=== PATIENT | female | born 2000 | race Caucasian/White ===

== ENCOUNTER → 2020-02-27 14:18 | Outpatient (CLI) | payer OTHER, MEDICAID, SELFPAY ==
--- NOTE | 2020-02-27 14:19 | DI.US.S_ITS ---
PROCEDURE: US OB >= 14 WEEKS FETUS INDICATIONS: 20 WEEK ANATOMY SCAN OUTSIDE/PRIOR DATING DATA: Last menstrual period (LMP): 10/12/19. LMP-based estimated date of delivery (NABEEL): 08/14/20. First dating scan (date and location): 02/27/20, [facility]. Estimated date of delivery (NABEEL) from first dating scan: 08/14/20. TECHNIQUE: Real-time scanning was performed of the fetus, with image documentation and biometric measurements. COMPARISON: None. FINDINGS: General: A single live intrauterine gestation is present. Presentation: Variable. Placenta: Placental position is posterior and low lying, with the inferior edge of the placenta seen on centimeter from the internal cervical os, as on image 3. Amniotic fluid index: 13.4 cm, normal range is 5-24 cm. heart rate: 155 beats per minute. Maternal cervical canal: 5.6 cm long. Normal lower limit is 2.5 cm. biometrics: Biparietal diameter: 4.3 cm equals 18 weeks 6 days Head circumference: 16.7 cm equals 19 weeks 2 days Abdominal circumference: 13.3 cm equals 20 weeks 4 days Femur length: 3.3 cm equals 20 weeks 1 day Estimated gestational age from initial scan: 19 weeks 5 days Composite gestational age from present scan: 20 weeks 5 days Estimated weight and percentile: 339 g, 74th percentile Measurement variability for biometric dating: +/- 7 days from 14 weeks to 15 weeks 6 days gestation, +/- 10 days from 16 weeks to 21 weeks 6 days gestation, +/- 2 weeks from 22 weeks to 27 weeks 6 days gestation, +/- 3 weeks for 28 weeks gestation or later. weight reference: 4500 g or EFW >90/95% is considered macrosomia or large for gestational age. EFW <10% is small for gestational age. EFW 5% or less is considered intra-uterine growth restriction. Anatomic survey: Neuro: Ventricles are non-dilated at less than 10 mm. Cisterna magna is normal at 3-11 mm. Cerebellum is normal in size and morphology. Nuchal skin fold: Normal at less than 6 mm between 14-21 weeks gestational age. Face: Nose and lips, facial profile are normal. Spine: No evidence for spina bifida. Heart: 4-chambered heart is present, with normal ventricular outflow tracts. Diaphragm: Diaphragm is intact. Stomach: Left-sided stomach is present. Kidneys: No hydronephrosis. Normal is less than 5 mm in 2nd trimester, less than 7 mm in 3rd trimester. Cord: 3-vessel cord has orthotopic insertion. Bladder: Normal in size. Extremities: All 4 extremities identified. IMPRESSION: A single live intrauterine is seen. No anatomic abnormalities are identified. A [id number] placenta is seen, with the inferior edge of placenta seen approximately 1 cm from the internal cervical. Dictated by: Epifanio Saba M.D. on 02/27/2020 at 16:13 Approved by: Epifanio Saba M.D. on 02/27/2020 at 16:16
== END ==
PROVIDERS: Referring Provider Obstetrics & Gynecology; Visit Provider Obstetrics & Gynecology
DX: Z34.82 Encounter for supervision of other normal pregnancy, second trimester (principal); Z3A.20 20 weeks gestation of pregnancy
CPT/HCPCS: 76811

== ENCOUNTER → 2020-03-04 11:56 | Outpatient (CLI) | payer OTHER, MEDICAID, SELFPAY ==
[2020-03-04 12:25] LABS: Add Manual Diff / Slide Review NO; Basophils Absolute Auto 0 /uL (0-100); Basophils Percent Auto 0.3 % (0-2); Eosinophils Absolute Auto 200 /uL (0-450); Eosinophils Percent Auto 1.4 % (2-4); Hematocrit 35.9 % (36-46); Hemoglobin 12.5 g/dL (12.0-16.0); Lymphocytes Absolute Auto 2100 /uL (1100-4500); Lymphocytes Percent Auto 14.5 % (25-40); Mean Corpuscular HGB Conc 34.9 % (30-36); Mean Corpuscular Hemoglobin 31.4 PG (26-34); Monocytes Absolute Auto 800 /uL (0-900); Monocytes Percent Auto 5.8 % (3-14); Neutrophils Absolute Auto 11100 /uL (1500-7000); Platelet Count 236 X10^3/uL (150-400); Red Blood Cell Count 3.99 X10^6/uL (4.0-5.2); Red Cell Distribution Width 12.6 % (11.6-14.8); White Blood Cell Count 14.3 X10^3/uL (4.5-11.0)
[2020-03-04 17:12] LABS: Appearance Urine UA CLOUDY; Bilirubin Urine UA NEGATIVE (NEGATIVE); Color Urine UA YELLOW; Glucose Urine UA NEGATIVE (Negative); Ketones Urine UA NEGATIVE (NEGATIVE); Leukocyte Esterase Urine UA NEGATIVE (NEGATIVE); Nitrite Urine UA NEGATIVE (Negative); Occult Blood Urine UA NEGATIVE (Negative); Protein Urine UA NEGATIVE (Negative); Urobilinogen Urine UA 0.2 E.U./dL (0.2)
[2020-03-04 17:19] LABS: UR Morphine/Opiate cutoff 300 Negative (Negative); Ur Creatinine Normal (Normal); Ur Specific Gravity Normal (Normal); Urine Amphetamines Negative (Negative); Urine Barbiturates Negative (Negative); Urine Benzodiazepines Negative (Negative); Urine Cocaine Negative (Negative); Urine MDMA Negative (Negative); Urine Methadone Negative (Negative); Urine Methamphetamines Negative (Negative); Urine Oxycodone Negative (Negative); Urine Phencyclidine Negative (Negative); Urine Tetrahydrocannabinol Negative (Negative); Urine Tricyclic Antidepressant Negative (Negative); Urine pH Normal (Normal)
[2020-03-04 17:26] LABS: pH Urine UA 7.5 (4.5-8.0)
[2020-03-04 18:47] LABS: Hepatitis B Surface Antigen NEGATIVE s/c (NEGATIVE); Rubella Antibody IgG 50.3 IU/mL (>15)
[2020-03-04 19:13] LABS: HIV 1 & 2 Ab/Ag 4th Gen Combo NEGATIVE (NEGATIVE); Hep C Virus Ab w/Reflex Quant NEGATIVE s/c (NEGATIVE)
[2020-03-05 05:36] LABS: RPR Screen Non Reactive (Non Reactive); Varicella IgG Antibody <135 index (Immune >165)
== END ==
PROVIDERS: Referring Provider Obstetrics & Gynecology; Visit Provider Obstetrics & Gynecology
DX: Z34.82 Encounter for supervision of other normal pregnancy, second trimester (principal)
CPT/HCPCS: 36415; 80055; 80305; 81003; 86787; 86803; 86850; 86900; 86901; 87086; 87389

== ENCOUNTER → 2020-04-26 14:15 | Outpatient (CLI) | payer OTHER, MEDICAID, SELFPAY ==
[2020-04-26 16:12] LABS: Hematocrit 33.3 % (36-46); Hemoglobin 11.5 g/dL (12.0-16.0)
[2020-04-26 16:38] LABS: GTT (PREG) 1 Hour PP 50gm Dose 121 mg/dL (76-139)
== END ==
PROVIDERS: Referring Provider Obstetrics & Gynecology; Visit Provider Obstetrics & Gynecology
DX: Z34.82 Encounter for supervision of other normal pregnancy, second trimester (principal); Z3A.25 25 weeks gestation of pregnancy
CPT/HCPCS: 36415; 82950; 85014; 85018

== ENCOUNTER → 2020-05-08 14:11 | Outpatient (CLI) | payer OTHER, MEDICAID, SELFPAY ==
--- NOTE | 2020-05-08 14:13 | DI.US.S_ITS ---
PROCEDURE: US OB FOLLOW UP INDICATIONS: FOLLOW-UP LOW-LYING PLACENTA OUTSIDE/PRIOR DATING DATA: Last menstrual period (LMP): 10/12/19. LMP-based estimated date of delivery (NABEEL): 08/14/20. First dating scan (date and location): 02/27/20, [facility]. Estimated date of delivery (NABEEL) from first dating scan: 08/14/20.. TECHNIQUE: Real-time scanning was performed of the fetus, with image documentation and biometric measurements. Endovaginal scanning: No COMPARISON: [facility], , OB >= 14 WEEKS FETUS, 02/27/2020, 14:27. FINDINGS: General: A single living intrauterine gestation is present. Presentation: Vertex Placenta: Placental position is posterior, without previa. Amniotic fluid index: 13.8 cm, normal range is 5-24 cm. heart rate: 135 beats per minute. Maternal cervical canal: 3.3 cm long. Normal lower limit is 2.5 cm. biometrics: Biparietal diameter: 18 weeks 6 days Head circumference: 19 weeks 2 days Abdominal circumference: 20 weeks 4 days Femur length: 20 weeks 1 day Estimated gestational age from initial scan: 19 weeks 5 days Composite gestational age from present scan: 19 weeks 5 days Estimated weight and percentile: 339 g; 74th percentile. Measurement variability for biometric dating: +/- 7 days from 14 weeks to 15 weeks 6 days gestation, +/- 10 days from 16 weeks to 21 weeks 6 days gestation, +/- 2 weeks from 22 weeks to 27 weeks 6 days gestation, +/- 3 weeks for 28 weeks gestation or later. weight reference: 4500 g or EFW >90/95% is considered macrosomia or large for gestational age. EFW <10% is small for gestational age. EFW 5% or less is considered intra-uterine growth restriction. Other: Not applicable. IMPRESSION: 1. Single living IUP redemonstrated and interval growth is normal. 2. Resolved low-lying placenta. Dictated by: Gianluca Gabriel [facility] Interpreted: Brenton Hayes MD on 05/08/2020 at 17:08 Approved by: Brenton Hayes M.D. on 05/08/2020 at 17:14
== END ==
PROVIDERS: Referring Provider Obstetrics & Gynecology; Visit Provider Obstetrics & Gynecology
DX: O44.43 Low lying placenta NOS or without hemorrhage, third trimester (principal); Z3A.19 19 weeks gestation of pregnancy
CPT/HCPCS: 76816

== ENCOUNTER → 2020-06-14 08:56 | Outpatient (CLI) | payer OTHER, MEDICAID, SELFPAY ==
[2020-06-15 08:24] LABS: Strep Grp B PCR NEG for Grp B Strep
== END ==
PROVIDERS: Visit Provider Obstetrics & Gynecology
DX: Z34.03 Encounter for supervision of normal first pregnancy, third trimester (principal); Z3A.35 35 weeks gestation of pregnancy
CPT/HCPCS: 87653

== ENCOUNTER 2020-06-21 11:14 | Outpatient (CLI) | payer OTHER, MEDICAID, SELFPAY ==
--- NOTE | 2020-06-21 11:46 | P.TNLD_ITS ---
Visit Information Visit Information Date of evaluation: 06/21/20 Primary OB Provider: Tootie Gallegos Reason for Evaluation: Yes non-stress test Comments/Additional reasons for admission: 20yo @36+4 with uncomplicated , presenting for NST for elevated FHR on bedside doppler in clinic. No other complaints obstetrical or otherwise. Vital Signs Vital Signs: 108-112/52-55 [facility] Medical History Alcohol addiction (Acute) Bronchitis (Acute) Depression with anxiety (Acute) Disordered eating (Acute) Drug addiction (Acute) Eczema (Acute) PTSD (post-traumatic stress disorder) (Acute) Seasonal allergic rhinitis (Acute) Surgical History No history of previous surgery (Acute) Family History Mother Drug addiction Acute alcohol intoxication with alcoholism Depression Bipolar 1 disorder PTSD (post-traumatic stress disorder) Anxiety Father Family estrangement Grandmother Depression Family/Other Breast cancer Grandfather Myocardial infarct Sister No problems noted. 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 H/O Treatment in 2017 ) Review of Systems Constitutional Constitutional: Reports system reviewed and no additional complaints, except as documented Evaluation Evaluation Baseline heart rate: 145 Variability: Moderate (11-25) monitor accelerations: Present monitor decelerations: Absent Diagnosis, Plan/Disposition Plan/Disposition Plan: Home with routine precautions and scheduled follow up. OB Disposition: home
== END 2020-06-21 12:00 | disposition home or self-care (01) ==
LOC: LABOR 11:45 → OB 06-25 12:41
PROVIDERS: PCP Nurse Practitioner Family; Referring Provider Obstetrics & Gynecology; Visit Provider Obstetrics & Gynecology
DX: O26.893 Other specified pregnancy related conditions, third trimester (principal); R03.0 Elevated blood-pressure reading, without diagnosis of hypertension; O99.333 Smoking (tobacco) complicating pregnancy, third trimester; Z3A.36 36 weeks gestation of pregnancy
CPT/HCPCS: 59025; G0378; G0379

== ENCOUNTER 2020-07-05 09:38 | Outpatient (CLI) | payer OTHER, MEDICAID, SELFPAY ==
--- NOTE | 2020-07-05 10:54 | PM.OBTRLD ---
Visit Information Visit Information Date of evaluation: 07/05/20 Primary OB Provider: Tootie Gallegos Reason for Evaluation: Yes non-stress test Comments/Additional reasons for admission: This patient is a 20-year-old 010 at 38 and 4 with severe anxiety around clinic visits and elevated blood pressures in clinic, sent to Labor and delivery for NST, preeclampsia labs, and serial blood pressures. No complaints today except for her anxiety. Vital Signs Vital Signs: 119-126/69-75 PFS Medical History Alcohol addiction (Acute) Bronchitis (Acute) Depression with anxiety (Acute) Disordered eating (Acute) Drug addiction (Acute) Eczema (Acute) PTSD (post-traumatic stress disorder) (Acute) Seasonal allergic rhinitis (Acute) Surgical History No history of previous surgery (Acute) Family History Mother Drug addiction Acute alcohol intoxication with alcoholism Depression Bipolar 1 disorder PTSD (post-traumatic stress disorder) Anxiety Father Family estrangement Grandmother Depression Family/Other Breast cancer Grandfather Myocardial infarct Sister No problems noted. 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 H/O Treatment in 2017 ) Review of Systems Constitutional Constitutional: Reports system reviewed and no additional complaints, except as documented Objective Labs Result Diagrams: 07/05/20 10:50 07/05/20 10:50 Labs: UPC 0.12 Evaluation Evaluation Baseline heart rate: 155 Variability: Moderate (11-25) monitor accelerations: Present monitor decelerations: Absent Diagnosis, Plan/Disposition Plan/Disposition Plan: Home with precautions. OB Disposition: home
[2020-07-05 11:05] LABS: Add Manual Diff / Slide Review NO; Basophils Absolute Auto 100 /uL (0-100); Basophils Percent Auto 0.8 % (0-2); Eosinophils Absolute Auto 200 /uL (0-450); Eosinophils Percent Auto 1.1 % (2-4); Hematocrit 33.8 % (36-46); Hemoglobin 11.4 g/dL (12.0-16.0); Lymphocytes Absolute Auto 2400 /uL (1100-4500); Lymphocytes Percent Auto 13.3 % (25-40); Mean Corpuscular HGB Conc 33.7 % (30-36); Mean Corpuscular Hemoglobin 29.5 PG (26-34); Mean Corpuscular Volume 87.5 fL (80-100); Monocytes Absolute Auto 1200 /uL (0-900); Monocytes Percent Auto 6.6 % (3-14); Neutrophils Absolute Auto 14200 /uL (1500-7000); Neutrophils Percent Auto 78.2 % (50-75); Platelet Count 265 X10^3/uL (150-400); Red Blood Cell Count 3.87 X10^6/uL (4.0-5.2); Red Cell Distribution Width 13.4 % (11.6-14.8); White Blood Cell Count 18.2 X10^3/uL (4.5-11.0)
[2020-07-05 11:23] LABS: Aspartate Aminotransferase 24 IU/L (14-36); BUN Creatinine Ratio 18.6 (6-22); Blood Urea Nitrogen 8 mg/dL (7-17); Estimated Glomerular Filt Rate > 60.0 mL/min (>60); Uric Acid 4.4 mg/dL (2.5-6.2)
[2020-07-05 12:00] LABS: Protein (Total) Urine Random 14 mg/dL (0-12); Protein Creatinine Ratio Urine 0.12 GRAM/24H
== END 2020-07-05 11:25 | disposition home or self-care (01) ==
LOC: LABOR 10:38 → OB 07-08 16:36
PROVIDERS: PCP Nurse Practitioner Family; Referring Provider Obstetrics & Gynecology; Visit Provider Obstetrics & Gynecology
DX: O26.893 Other specified pregnancy related conditions, third trimester (principal); F41.9 Anxiety disorder, unspecified; Z3A.38 38 weeks gestation of pregnancy
CPT/HCPCS: 59025; 82570; 84156; 84450; 84550; 85025; G0378; G0379

== ENCOUNTER → 2020-07-15 08:39 | Outpatient (CLI) | payer OTHER, MEDICAID, SELFPAY ==
[2020-07-17 06:12] LABS: COVID19 Sendout Not Detected (Not Detect)
== END ==
PROVIDERS: PCP Nurse Practitioner Family; Visit Provider Physician Assistant
DX: Z11.59 Encounter for screening for other viral diseases (principal)
CPT/HCPCS: 87635

== ENCOUNTER 2020-07-17 19:00 | Inpatient (IN) | payer OTHER, MEDICAID, SELFPAY ==
[2020-07-17] MEDS: DINOPROSTONE VAG (CERVIDIL) 10 MG VAG (20:35)
[2020-07-17 22:37] LABS: Add Manual Diff / Slide Review NO; Basophils Absolute Auto 100 /uL (0-100); Basophils Percent Auto 0.4 % (0-2); Eosinophils Absolute Auto 100 /uL (0-450); Eosinophils Percent Auto 0.8 % (2-4); Hematocrit 34.5 % (36-46); Hemoglobin 11.3 g/dL (12.0-16.0); Lymphocytes Absolute Auto 3000 /uL (1100-4500); Lymphocytes Percent Auto 18.3 % (25-40); Mean Corpuscular HGB Conc 32.8 % (30-36); Mean Corpuscular Hemoglobin 28.6 PG (26-34); Mean Corpuscular Volume 87.2 fL (80-100); Monocytes Absolute Auto 1100 /uL (0-900); Monocytes Percent Auto 6.7 % (3-14); Neutrophils Absolute Auto 12000 /uL (1500-7000); Neutrophils Percent Auto 73.8 % (50-75); Platelet Count 272 X10^3/uL (150-400); Red Blood Cell Count 3.95 X10^6/uL (4.0-5.2); Red Cell Distribution Width 13.5 % (11.6-14.8); White Blood Cell Count 16.2 X10^3/uL (4.5-11.0)
[2020-07-17 23:51] VITALS: BP 117/64
--- NOTE | 2020-07-18 07:40 | P.HPOB_ITS ---
OB HPI Date/Time Date of admission: 07/17/20 Date Patient Seen: 07/18/20 Time Patient Seen: 08:40 History of Present Condition Chief complaint: eval of labor : 2 Para: 0 Estimated Date of Delivery: 07/15/20 Estimated Gestational Age (weeks): 40 Narrative: Marietta Santos is a 20 year old @40+3 admitted for induction of labor for postdates, in the setting of significant anxiety around her delivery. The patient reports feeling well with irregular contractions this AM, but denies VB, LOF, decreased movement, or any PIH complaints. The patient's has been uncomplicated except for anxiety about her care, and a history of alcohol abuse stopped at 5 weeks gestation and with negative u tox screenings. The patient has been living with her grandmother during COVID19. Indications Indication for induction OB: post dates History of Present care: good care, initiated at week # (13), number of visits (14) and pounds weight gain (34) Dating criteria: based on 1st trimester US only Ultrasounds: normal 1st trimester US and normal mid trimester US Obstetrical complications: none Medical complications: none Preadmission Labs Blood type: A (+) positive -: Antibody screen: negative, GBS status: negative, HBsAG: negative, HIV: negative and RPR/VDLR: negative -: Chlamydia screen: not detected and Gonorrhea screen: not detected -: Rubella: immune and Varicella: not immune Cell-free DNA: declined aneuploidy screening Urine: negative, u tox negative 1 hr GTT: 121 Prior (ies) History: 2018: 6 week SAB, expectantly managed Evaluation Evaluation Baseline heart rate: 125 Variability: Moderate (11-25) monitor accelerations: Present monitor decelerations: Absent Category of Tracing: Reactive Cervical dilation (cm): 1 Cervical effacement (%): 75 station: -1 Laboratory results: Laboratory Tests 07/17/20 07/17/20 19:45 19:45 WBC 16.2 H RBC 3.95 L Hgb 11.3 L Hct 34.5 L MCV 87.2 MCH 28.6 MCHC 32.8 RDW 13.5 Plt Count 272 Neut % (Auto) 73.8 Lymph % (Auto) 18.3 L [place] % (Auto) 6.7 Eos % (Auto) 0.8 L Baso % (Auto) 0.4 Neut # (Auto) 91710 H Lymph # (Auto) 3000 [place] # (Auto) 1100 H Eos # (Auto) 100 Baso # (Auto) 100 Blood Type A Positive Antibody Screen Negative Comments: soft, anterior- portillo score 8 PFSH Medical History Alcohol addiction (Acute) Bronchitis (Acute) Depression with anxiety (Acute) Disordered eating (Acute) Drug addiction (Acute) Eczema (Acute) PTSD (post-traumatic stress disorder) (Acute) Seasonal allergic rhinitis (Acute) Surgical History No history of previous surgery (Acute) Family History Mother Drug addiction Acute alcohol intoxication with alcoholism Depression Bipolar 1 disorder PTSD (post-traumatic stress disorder) Anxiety Father Family estrangement Grandmother Depression Family/Other Breast cancer Grandfather Myocardial infarct Sister No problems noted. 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 H/O Treatment in 2017 ) Meds Home Medications and Allergies Home Medications Medication Instructions Recorded Confirmed Type Double Electric breast Pump and #1 each 05/29/20 07/17/20 Rx Supplies Allergies Allergy/AdvReac Type Severity Reaction Status Date / Time No Known Drug Allergies Allergy Verified 07/15/20 08:46 Review of Systems Constitutional Constitutional: Reports system reviewed and no additional complaints, except as documented Cardiovascular Cardiovascular: Reports system reviewed and no additional complaints, except as documented Respiratory Respiratory: Reports system reviewed and no additional complaints, except as documented Gastrointestinal Gastrointestinal: Reports system reviewed and no additional complaints, except as documented Genitourinary Genitourinary: Reports system reviewed and no additional complaints, except as documented Musculoskeletal Musculoskeletal: Reports system reviewed and no additional complaints, except as documented Exam Vital Signs (past 8 hours): 108/50, HR 88, T 36.3C- 07/17/20 23:51 Blood Pressure 117/64 GI Palpation: soft and No tender External Female Exam: normal external appearance Presentation: vertex Estimated Weight (lbs): 8 Skin General: no rashes or lesions noted Extrem General: normal to inspection Objective Labs Result Diagrams: 07/17/20 19:45 Labs: Laboratory Results - last 24 hr 07/17/20 07/17/20 19:45 19:45 WBC 16.2 H RBC 3.95 L Hgb 11.3 L Hct 34.5 L MCV 87.2 MCH 28.6 MCHC 32.8 RDW 13.5 Plt Count 272 Neut % (Auto) 73.8 Lymph % (Auto) 18.3 L [place] % (Auto) 6.7 Eos % (Auto) 0.8 L Baso % (Auto) 0.4 Neut # (Auto) 17243 H Lymph # (Auto) 3000 [place] # (Auto) 1100 H Eos # (Auto) 100 Baso # (Auto) 100 Blood Type A Positive Antibody Screen Negative Assessment and Plan Assessment and Plan Assessment and Plan narrative: This patient is admitted for postdates induction, s/p cervidil overnight and now with a favorable cervix. We discussed the plan for pitocin augmentation this AM after a light meal, and I encouraged the patient to ambulate, sit on the birthing ball, etc. - cEFM, toco - pitocin per protocol - Anticipate
[2020-07-18] MEDS: OXYTOCIN PREMIX 30 UNIT/500 ML PLAST..BAG IV (09:21)
[2020-07-18] MEDS: LACTATED RINGERS 1,000 ML 100 ML IV ×2 (09:21→13:43)
--- NOTE | 2020-07-18 15:24 | PM.OBPNLAB ---
Date/Time Date Patient Seen: 07/18/20 Time Patient Seen: 15:10 Pain Control Pain control: epidural Pelvic Exam Dilation (cm): 3 Effacement (%): 90 station: -1 Amniotic membrane status: Ruptured (Thick meconium) Comments: Exam deferred per patient request until after epidural. Patient having good relief with epidural. Contractions Contractions on admission: regular Monitor mode: External Pitocin rate (mU/min): 12 Contraction frequency (min): 3 Contraction pattern: Regular Status status: Category l Heart Rate Baseline: 125 Monitor Accelerations: Present Monitor Decelerations: Variable (rare) Monitor Variability: Moderate Assessment and Plan Assessment: induction ongoing Plan: continuous present management Comments: Continue pitocin per protocol.
[2020-07-18] MEDS: FENT 2MCG/ML BUPIV 0.125% EPI 200 MCG/100 ML PLAST..BAG 10 MCG EPIDURAL (22:25)
[2020-07-19] MEDS: METHYLERGONOVINE 0.2 MG/ML VIAL IM (05:10)
--- NOTE | 2020-07-19 05:19 | P.PCNOB_ITS ---
Events: Meconium Stained Fluid Labor & Delivery Delivery date: 07/19/20 Intrapartal events: Acceleration and Deceleration Cervical ripening method: per Cervidil protocol Induction method: per pitocin protocol Delivery augmentation: rupture of membranes Delivery monitor: external FHT and external uterine Route of delivery: L&D Laceration Description: Perineal - 3rd Degree (3a) Delivery repair: vicryl and chromic Estimated blood loss (mL): 250 Anesthesia type: Epidural Narrative: This patient presented for induction of labor for postdates. She underwent cervical ripening with Cervidil and was started on Pitocin when her cervix became favorable. She underwent AROM at 3cm for thick meconium, and progressed to fully dilated on pitocin with intermittent variables but no other complications and reassuring maternal and status. After a 2 hour 2nd stage, she was delivered of a healthy baby girl from the OA position, body cord x1, apgars 9+9, weight 7#9. The shoulders delivered with ease. The placenta delivered spontaneously and intact shortly thereafter. A 3a perineal laceration was noted. The capsule of the external anal sphincter was reinforced with 3-0 chromic in an interrupted fashion, and the laceration was otherwise repaired with 3-0 vicryl in the usual fashion. The patient had lower uterine segment atony, and received 1x 0.2mg IM methergine to good effect, along with 30mU toney teresita in her IV fluids over the 2 hours after delivery. No other intrapartum or immediate complications were noted. [place] Baby Rocha: Infant gender: Female Presentation: vertex position: Left Occiput Transverse (LIZZETH) cord vessel description: Clamped/Cut score (1 min): 9 score (5 min): 9 Plan for aftercare: Routine care. 2g Ancef x1 IV for 3rd degree perineal laceration.
[2020-07-19] MEDS: CEFAZOLIN 2 GM/100 ML FROZ.PIGGY IV (06:34)
[2020-07-19] MEDS: OXYTOCIN PREMIX 30 UNIT/500 ML PLAST..BAG 100 UNIT IV (06:37)
[2020-07-19] MEDS: DERMOPLAST SPRAY 20% 60 ML 1 SPRAY TOP (07:55)
[2020-07-19] MEDS: DOCUSATE 100 MG CAPSULE PO ×2 (07:56→20:12)
[2020-07-19] MEDS: IBUPROFEN 600 MG TABLET PO ×3 (07:56→22:47)
--- NOTE | 2020-07-19 14:18 | PM.OBPN.1 ---
Subjective - OB Subjective Patient comments: no complaints, pain well controlled, tolerating diet and flatus present baby status: doing well [place] feeding status: exclusively breast feeding Date Patient Seen: 07/20/20 Time Patient Seen: 13:00 Interval history: This patient is PPD#0 s/p c/b 3a perineal laceration, recovering well except for urinary retention now mid-voiding trial after straight cath. Patient is for dave overnight if unable to void. Mild to moderate lochia, otherwise meeting goals. Exam Vital Signs (past 8 hours): VSS Resp Effort & Inspection: normal respiratory effort Auscultation: clear to auscultation bilaterally Cardio Rate: regular rate Rhythm: regular rhythm GI Palpation: soft and No tender External Female Exam: normal external appearance (swelling improving, repair intact) Objective Labs Result Diagrams: 07/17/20 19:45 Assessment & Plan Plan day: 0 plan OB: routine care Comments: Routine care, dave overnight with VT in AM if not successful this afternoon. Time Spent With Patient Time: Total time spent is greater than 50% in coordination of care (as documented) at patient's floor/unit and/or counseling patient: Time with patient: less than 15 minutes
[2020-07-19] MEDS: ACETAMINOPHEN 325 MG TABLET 650 MG PO (20:12)
[2020-07-20] MEDS: DOCUSATE 100 MG CAPSULE PO (08:32)
[2020-07-20] MEDS: ACETAMINOPHEN 325 MG TABLET 650 MG PO (08:32)
[2020-07-20] MEDS: IBUPROFEN 600 MG TABLET PO (08:32)
--- NOTE | 2020-07-20 10:13 | P.PNOB_ITS ---
Subjective - OB Subjective Patient comments: pain well controlled, tolerating diet, flatus present and other (mid- voiding trial this AM) baby status: doing well [place] feeding status: exclusively breast feeding Narrative: This patient is a 20yo now P1 PPD#1 s/p complicated by a prolonged pushing stage and 3a perineal laceration, with a course complicated by urinary retention. This AM, the patient reports good pain control with motrin and tylenol with minimal abdominal pain or cramping. She has mild to moderate lochia, is tolerating PO, is ambulating without difficulty, and is passing flatus. We discussed tips for voiding including running the water, relaxing and giving herself time, etc. We also discussed that given the patient's history, she is at high risk for anxiety and depression, though her symptoms are well controlled right now. We discussed referral to behavioral health vs. starting a low dose SSRI such as Sertraline, and the patient would prefer a referral to [facility] to start. Date Patient Seen: 07/20/20 Time Patient Seen: 10:18 Exam Vital Signs (past 8 hours): 117/63, HR 92 Const General: cooperative, healthy appearing and comfortable Resp Effort & Inspection: normal respiratory effort Auscultation: clear to auscultation bilaterally Cardio Rate: regular rate Rhythm: regular rhythm GI Palpation: soft and No tender Other: Fundus firm, at u Other: Exam deferred on patient request, patient denies drainage or bleeding, laceration repair visualized by nursing staff during dave removal and intact. Skin General: no rashes or lesions noted Objective Labs Result Diagrams: 07/17/20 19:45 Assessment & Plan Plan day: 1 plan OB: routine care Comments: This patient is mid voiding trial, and we discussed that if the voiding trial is successful, she will be discharged home but should come in to the ED if she is unable to void. We further discussed that if she is unable to void, she will be discharged home with a leg bag, with follow up Wednesday for a repeat voiding trial. The patient vocalized understanding. We also discussed routine precautions and referral to behavioral health. Time Spent With Patient Time: Total time spent is greater than 50% in coordination of care (as documented) at patient's floor/unit and/or counseling patient: Time with patient: 15-24 minutes
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
[2020-07-20 13:57] VITALS: BP 133/88; PULSE 83; RESP 18; TEMP 36.2
== END 2020-07-20 16:06 | disposition home or self-care (01) | DRG 542 ==
PROVIDERS: Admitting Provider Obstetrics & Gynecology; PCP Nurse Practitioner Family; Referring Provider Obstetrics & Gynecology; Visit Provider Obstetrics & Gynecology
DX: O48.0 Post-term pregnancy (principal); Z3A.40 40 weeks gestation of pregnancy; Z37.0 Single live birth; O62.2 Other uterine inertia; O70.21 Third degree perineal laceration during delivery, IIIa; O77.0 Labor and delivery complicated by meconium in amniotic fluid; Z11.59 Encounter for screening for other viral diseases
CPT/HCPCS: 01967; 59050; 59200; 59409; 85025; 86850; 86900; 86901; 87635; G0379; J0690; J2210; J2590

== ENCOUNTER 2020-07-21 07:40 | Emergency (ER) | payer OTHER, MEDICAID, SELFPAY ==
[2020-07-21 07:48] VITALS: BP 132/79; PULSE 109; RESP 18; TEMP 36.2; O2SAT 97; BMI 32.8
--- NOTE | 2020-07-21 07:49 | ED.FEMALEGU ---
HPI - Female Genitourinary General Chief complaint: Urogenital-Female Stated complaint: unable to urinate/ just had baby per phys Time Seen by Provider: 07/21/20 07:47 Source: patient Mode of arrival: Ambulatory Limitations: no limitations History of Present Illness HPI Narrative: Patient is a 20-year-old female who presents with urinary retention. She was released from hospital yesterday after vaginal delivery. She had some urinary retention at that time however she urinated prior to discharge. She says that he is having increased abdominal pain she is only urinating a little bit. Bladder scan shows greater than 999mL. She has an appointment with OB in 2 days Related Data Previous Rx's Medication Instructions Recorded Double Electric breast Pump and #1 each 05/29/20 Supplies acetaminophen [Tylenol] 650 mg PO Q6H PRN #20 tab 07/20/20 docusate sodium 100 mg PO BID #60 tab 07/20/20 ibuprofen 600 mg PO Q8H PRN #20 tab 07/20/20 Allergies Allergy/AdvReac Type Severity Reaction Status Date / Time No Known Drug Allergies Allergy Verified 07/15/20 08:46 Review of Systems Review of Systems Narrative: GENERAL: Denies chills,fever HEENT: Denies throat pain RESPIRATORY: Denies dyspnea, cough, wheezing CARDIOVASCULAR: Denies chest pain, palpitations : See HPI GASTROINTESTINAL: Denies nausea, vomiting MUSCULOSKELETAL: Denies extremity pain, injury SKIN: No rash, no laceration, no pruritus NEUROLOGIC: Denies weakness, dizziness, headache, numbness 8 point review of systems is negative except for those stated above and HPI Patient History Medical History Alcohol addiction (Acute) Bronchitis (Acute) Depression with anxiety (Acute) Disordered eating (Acute) Drug addiction (Acute) Eczema (Acute) PTSD (post-traumatic stress disorder) (Acute) Seasonal allergic rhinitis (Acute) Surgical History No history of previous surgery (Acute) Family History Mother Drug addiction Acute alcohol intoxication with alcoholism Depression Bipolar 1 disorder PTSD (post-traumatic stress disorder) Anxiety Father Family estrangement Grandmother Depression Family/Other Breast cancer Grandfather Myocardial infarct Sister No problems noted. Exam Initial Vital Signs Initial Vital Signs: Vital Signs Temperature 97.2 F L 07/21/20 07:48 Pulse Rate 109 H 07/21/20 07:48 Respiratory Rate 18 07/21/20 07:48 Blood Pressure 132/79 07/21/20 07:48 Pulse Oximetry 97 07/21/20 07:48 GENERAL: Well-appearing, well-nourished and in no acute distress. CARDIOVASCULAR: peripheral pulses in tact, cap refill <2 sec RESPIRATORY: No respiratory distress, speaks in full sentences without difficulty Abdomen: Soft nontender : Magaña catheter in place EXTREMITIES: Normal range of motion, no clubbing or edema. Neurovascularly intact NEUROLOGICAL: Cranial nerves II through XII grossly intact. Normal gait and speech. SKIN: Warm, dry, no petechiae, no rashes or lesions. Course Orders Ordered: ED Orders 07/21/20 08:30 Urinalysis and Microscopic Stat Vital Signs Vital signs: Vital Signs - 8 hr 07/21/20 07:48 07/21/20 09:25 Temperature 97.2 F L Pulse Rate 109 H 83 Respiratory Rate 18 19 Blood Pressure 132/79 116/72 Pulse Oximetry 97 97 MDM - Female Genitourinary Lab Data Attestation: I reviewed the patient's lab results. Labs: Lab Results 07/21/20 Range/Units 08:30 Urine Color Yellow Urine Appearance Clear Urine pH 6.5 (4.5-8.0) Ur Specific [place] <=1.005 (1.000-1.035) Urine Protein Negative (Negative) Urine Glucose (UA) Negative (Negative) g/dL Urine Ketones Negative (NEGATIVE) Urine Occult Blood Negative (Negative) Urine Nitrate Negative (Negative) Urine Bilirubin Negative (NEGATIVE) Urine Urobilinogen 0.2 (0.2) E.U./dL Ur Leukocyte Esterase Negative (NEGATIVE) Urine RBC None seen (0-5/HPF) Urine WBC None seen (0-5/HPF) Urine Bacteria None seen (None) Ur Culture Indicated? Cult not indicated MDM Narrative Medical decision making narrative: Mag[place] catheter placed, pain much improved. She has appointment in 3 days with her Ob. Discharge Plan Departure Patient Disposition: Home Clinical Impression: Acute urinary retention Discharge Date/Time: 07/21/20 09:26 Instructions: How to Care for Your Magaña Catheter -- Female, DI for Urinary Retention in Women Activity Restrictions/Additional Instructions: *You have been diagnosed with urinary retention *What to do: Leave Magaña catheter in place until evaluated by Ob *Continue to take medications as directed *Follow up with your primary care provider in 2-3 days *Return to ER if you should have no drainage from Mag[place] catheter, blood in bag, increased abdominal pain or any new, worsening or concerning symptoms Prescriptions: No Action (DME) Double Electric breast Pump and Supplies See Rx Instructions .ROUTE .MEDSUPPLY Qty: 1 RF: 0 ibuprofen 600 mg tablet 600 mg PO Q8H PRN (Reason: pain) Qty: 20 RF: 0 acetaminophen [Tylenol] 325 mg tablet 650 mg PO Q6H PRN (Reason: pain) Qty: 20 RF: 1 docusate sodium 100 mg tablet 100 mg PO BID Qty: 60 RF: 1 Referrals: Tootie Gallegos MD [Physician] - Rodney Sanchez ARNP [Primary Care Provider] -
[2020-07-21 08:50] LABS: Bacteria Urine None Seen; RBC Urine None Seen (0-5/HPF); WBC Urine None Seen (0-5/HPF)
[2020-07-21 08:58] LABS: Appearance Urine UA CLEAR; Bilirubin Urine UA NEGATIVE (NEGATIVE); Color Urine UA YELLOW; Glucose Urine UA NEGATIVE (Negative); Ketones Urine UA NEGATIVE (NEGATIVE); Leukocyte Esterase Urine UA NEGATIVE (NEGATIVE); Nitrite Urine UA NEGATIVE (Negative); Occult Blood Urine UA NEGATIVE (Negative); Protein Urine UA NEGATIVE (Negative); Specific Gravity Urine UA <=1.005 (1.000-1.035); Urobilinogen Urine UA 0.2 E.U./dL (0.2)
[2020-07-21 09:05] LABS: pH Urine UA 6.5 (4.5-8.0)
[2020-07-21 09:09] LABS: Culture Indicated Urine Cult Not Indicated
[2020-07-21 09:25] VITALS: BP 116/72; PULSE 83; RESP 19; O2SAT 97
== END 2020-07-21 09:26 | disposition home or self-care (01) ==
PROVIDERS: Emergency Provider Emergency Medicine; PCP Nurse Practitioner Family
DX: R33.8 Other retention of urine (principal)
CPT/HCPCS: 51701; 51798; 81001; 99284

== ENCOUNTER → 2022-07-22 10:35 | Outpatient (CLI) | payer OTHER, MEDICAID, SELFPAY | PROVIDERS: Visit Provider Registered Nurse | DX: R30.0 Dysuria (principal) | CPT/HCPCS: 81002 ==

== ENCOUNTER → 2022-10-13 14:47 | Outpatient (CLI) | payer OTHER, MEDICAID, SELFPAY ==
[2022-10-13 15:43] LABS: Influenza A - CEPHEID Flu A NEGATIVE (NEGATIVE); Influenza B - CEPHEID Flu B NEGATIVE (NEGATIVE); Respiratory Syncytial Virus Negative (Negative)
[2022-10-13 15:46] LABS: COVID-19 CEPHEID 4-PLEX PCR Negative (Negative)
== END ==
PROVIDERS: Visit Provider Physician Assistant Medical
DX: R42 Dizziness and giddiness (principal)
CPT/HCPCS: 0241U

== ENCOUNTER → 2022-12-10 08:53 | Outpatient (CLI) | payer OTHER, MEDICAID, SELFPAY ==
[2022-12-10 10:11] LABS: Influenza A - CEPHEID Flu A NEGATIVE (NEGATIVE); Influenza B - CEPHEID Flu B NEGATIVE (NEGATIVE); Respiratory Syncytial Virus Negative (Negative)
[2022-12-10 11:22] LABS: COVID-19 CEPHEID 4-PLEX PCR Negative (Negative)
== END ==
PROVIDERS: Visit Provider Nurse Practitioner Family
DX: J02.9 Acute pharyngitis, unspecified (principal); J06.9 Acute upper respiratory infection, unspecified; Z20.822 Contact with and (suspected) exposure to COVID-19
CPT/HCPCS: 0241U; 87070; 87147; 87880

== ENCOUNTER 2023-07-30 16:36 | Emergency (ER) | payer SELFPAY ==
[2023-07-30 16:47] VITALS: BP 136/94; PULSE 98; RESP 18; TEMP 36.4; O2SAT 99; BMI 29.8
--- NOTE | 2023-07-30 16:52 | DI.RAD.S_ITS ---
PROCEDURE: XR ANKLE RT MIN 3V INDICATIONS: felt ankle snap, pain and swelling TECHNIQUE: 3 views of the ankle were acquired. COMPARISON: None. FINDINGS: Bones: No fractures or dislocations. Ankle mortise is normally aligned. No suspicious bony lesions. Soft tissues: No tibiotalar joint effusion. IMPRESSION: No acute osseous abnormality. If symptoms persist, follow-up radiographs and/or CT or MRI may be helpful for further evaluation. Dictated by: Jaguar Bell M.D. on 07/30/2023 at 17:53 Approved by: Jaguar Bell M.D. on 07/30/2023 at 17:55
--- NOTE | 2023-07-30 18:41 | ED_ITS ---
HPI - Extremity Injury (Lower) General Chief Complaint: Extremity Injury, Lower Stated Complaint: RT FOOT INJURY Time Seen by Provider: 07/30/23 18:05 Source: patient Mode of arrival: Wheelchair History of Present Illness HPI Narrative: 23-year-old female without chronic medical history presents for evaluation of a right foot injury. She states that she had been walking and tripped on a root, she felt it snap and now has pain in her right ankle with some swelling over the lateral malleolus. She has pain with ambulation and improvement with rest. She denies numbness, tingling or weakness. She has no knee or hip pain. She is otherwise well and free of complaint Related Data Previous Rx's Medication Instructions Recorded Double Electric breast Pump and #1 ea 05/29/20 Supplies acetaminophen 325 mg tablet 650 mg PO Q6H PRN pain #20 tabs 07/20/20 (Tylenol) docusate sodium 100 mg tablet 100 mg PO BID vaginal delivery #60 07/20/20 tabs ibuprofen 600 mg tablet 600 mg PO Q8H PRN pain #20 tabs 08/01/20 desogestrel-e.estradiol 0.15 1 tab PO DAILY contraception #84 08/23/20 mg-0.02 mg(21)/e.estrad 0.01 mg(5) tabs tablet (Kariva (28)) Allergies Allergy/AdvReac Type Severity Reaction Status Date / Time No Known Drug Allergies Allergy Verified 07/30/23 16:50 Review of Systems Review of Systems Narrative: GENERAL: Denies chills, fatigue, malaise, fever, sweats. HEENT: Denies sinus pain, ear pain, sore throat, difficulty swallowing, dizziness. RESPIRATORY: Denies dyspnea, cough, wheezing, hemoptysis, sputum. CARDIOVASCULAR: Denies chest pain, palpitations, orthopnea, edema, GASTROINTESTINAL: Denies nausea, vomiting, abdominal pain, diarrhea, constipation, melena. : Denies dysuria, frequency, incontinence, hematuria, urinary retention. MUSCULOSKELETAL: See HPI SKIN: Denies rash, skin lesions, or other NEUROLOGIC: Denies weakness, headache, numbness, change in speech, confusion, seizures, incoordination. PSYCHIATRIC: No concerning psychosocial issues. 12 point review of systems is negative except for those stated above Patient History Medical History Alcohol addiction Bronchitis Depression with anxiety Disordered eating Drug addiction Eczema PTSD (post-traumatic stress disorder) Seasonal allergic rhinitis Surgical History No history of previous surgery Family History Mother Drug addiction Acute alcohol intoxication with alcoholism Depression Bipolar 1 disorder PTSD (post-traumatic stress disorder) Anxiety Father Family estrangement Grandmother Depression Family/Other Breast cancer Grandfather Myocardial infarct Sister No problems noted. Social History marital status: household members: other pets and animals: Yes (Boyfriend has a cat : and aware now) education level: high school occupational status: unemployed current occupational exposures/hazards: No special lindy needs: No Smoking Status: Current every day smoker Tobacco: How many years used: 6 second hand exposure: No alcohol intake: former substance use type: marijuana and methamphetamine Smoking Status: Current every day smoker tobacco type: cigarettes alcohol intake frequency: 3 or more drinks per day Alcohol type: beer Substance Use Type: does not use and former substance user Exam Narrative Exam Narrative: GEN: AOx3 and in mild distress EYES: Pupils are equal, round, and reactive to light and accommodation. Extraoccular muscles are intact bilaterally. There is no subconjunctival hemorrhage or exudate. CHEST: Lungs are clear to auscultation bilaterally and free of wheezes, rales, or rhonchi. Heart rate is regular rhythm, there are no murmurs, clicks, rubs, or gallops. There is no chest wall tenderness. ABD: Abdomen is soft and nontender. There is no guarding or rebound. Bowel sounds are normal in all 4 quadrants. There is no mass or organomegaly. EXT: Decreased range of motion at right ankle secondary to pain, minimal swelling over lateral malleolus, no ligamentous laxity, no pain with calf squeeze, no pain at knee. Closed, isolated and neurovascularly intact SKIN: Warm, pink, and dry. No erythema or rash Initial Vital Signs Initial Vital Signs: Vital Signs Temperature 97.5 F L 07/30/23 16:47 Pulse Rate 98 H 07/30/23 16:47 Respiratory Rate 18 07/30/23 16:47 Blood Pressure 136/94 H 07/30/23 16:47 Pulse Oximetry 99 07/30/23 16:47 Oxygen Delivery Method Room Air 07/30/23 16:47 Procedures Orthopedic Splinting/Casting Injury #1: Side: right Lower Extremity Injury Location: ankle Lower Extremity Immobilizer: boot orthosis Other Orthopedic Equipment: crutches Post splinting neuro exam: intact Post splinting vascular exam: intact Course Orders Ordered: ED Orders 07/30/23 16:52 XR ankle RT min 3V Stat Vital Signs Vital signs: Vital Signs - 8 hr 07/30/23 16:47 Temperature 97.5 F L Pulse Rate 98 H Respiratory Rate 18 Blood Pressure 136/94 H Pulse Oximetry 99 Oxygen Delivery Method Room Air MDM - Extremity Injury (Lower) Lab Data Labs: Point of Care Testing Test Results Negative MDM Narrative Medical decision making narrative: [23] year old patient presents with right ankle pain after injury Multiple etiologies for patient's symptoms considered including, but not limited to: [Fracture versus dislocation versus ligamentous injury versus other] Prior Charts reviewed in our EMR Primary Historian: patient Imaging reviewed: Ankle without fracture or dislocation Patient with reassuring history and physical exam, low risk injury with pain and swelling over lateral malleolus, imaging shows no fracture, no ligamentous laxity on exam. Patient splinted given her level of report of pain and inability to ambulate. Patient instructed to use crutches and weightbear as tolerated. Patient's symptoms improved over duration of stay with above-stated therapies. Findings and discharge diagnosis discussed with patient/family followed by verbalization of understanding Return precautions discussed with patient/family whom verbalize understanding of diagnosis and plan Discharge Plan Departure Patient Disposition: Home Clinical Impression: Ankle sprain Instructions: DI for Ankle Sprain Activity Restrictions/Additional Instructions: *You have been diagnosed with [right ankle sprain. As we discussed your history and physical exam are reassuring in the x-ray shows no fracture] *What to do: *Please continue to take your regular medications as directed. [ ] New medication prescriptions sent to your pharmacy: [ ] [ ] New medication written as a paper prescription [x] Tylenol and occasional Motrin for pain Follow-up with your primary care provider early next week, let them know that you were seen in the emergency department and we would like you seen in follow- up. *Return to Emergency Department if you should have any new, worsening or concerning symptoms, such as [worsening pain, significant swelling, cold extremities, numbness, tingling, weakness or other bothersome symptoms Prescriptions: No Action (DME) Double Electric breast Pump and Supplies See Rx Instructions .ROUTE .MEDSUPPLY Qty: 1 0RF Rx Instructions: As directed for 99 months. ibuprofen 600 mg tablet 600 mg PO Q8H PRN (Reason: pain) Qty: 20 0RF Rx Instructions: Take every 6 hours as needed. desog-e.estradiol/e.estradiol [Kariva (28)] 0.15-0.02 mgx21 /0.01 mg x 5 tablet 1 tab PO DAILY Qty: 84 4RF acetaminophen [Tylenol] 325 mg tablet 650 mg PO Q6H PRN (Reason: pain) Qty: 20 1RF Rx Instructions: Take as often as every 6 hours for pain. docusate sodium 100 mg tablet 100 mg PO BID Qty: 60 1RF Referrals: Miscellaneous,Doctor, MD [Primary Care Provider] - Stand Alone Forms: Patient Portal/API
[2023-07-30 18:50] VITALS: BP 130/88; PULSE 90; O2SAT 98
== END 2023-07-30 19:00 | disposition home or self-care (01) ==
PROVIDERS: Emergency Provider Emergency Medicine
DX: S93.401A Sprain of unspecified ligament of right ankle, initial encounter (principal); W01.0XXA Fall on same level from slipping, tripping and stumbling without subsequent striking against object, initial encounter
CPT/HCPCS: 29580; 73610; 81025; 99283